=== PATIENT | female | born 1995 ===

== ENCOUNTER 2021-12-09 11:02 | Emergency (ER) | payer SELFPAY ==
[2021-12-09] MEDS ORDERED: SODIUM CHLORIDE 0.9% 1000 ML 1,000 ML IV ONE (13:06)
[2021-12-09] MEDS ORDERED: diphenhydrAMINE 50 MG/ML VIAL IV ONE (13:06)
[2021-12-09] MEDS ORDERED: METOCLOPRAMIDE 10 MG/2 ML INJ IV ONE (13:06)
[2021-12-09] MEDS ORDERED: dexAMETHasone 4 MG/ML VIAL IV ONE (13:06)
--- NOTE | 2021-12-09 14:23 | Cat Scan Report ---
NONENHANCED CT SCAN OF THE HEAD: INDICATION / CLINICAL INFORMATION: 26 years Female; seizure. TECHNIQUE: Routine CT head without contrast. All CT scans at this location are performed using CT dos e reduction for ALARA by means of automated exposure control. COMPARISON: None. FINDINGS: BRAIN / INTRACRANIAL CONTENTS: No acute hemorrhage, mass effect, midline shift, hydrocephalus, or acu te, large territorial infarct. No chronic infarct or focal atrophy. Normal brain volume and ventricul ar/sulcal size for age. No significant white matter abnormality. Given the history of seizures, no space taking lesion in the frontal or in the temporal lobes; normal temporal horn tips suggest normal medial temporal lobes CRANIOCERVICAL JUNCTION: No significant abnormality. ORBITS: No significant abnormality of visualized orbits. SINUSES / MASTOIDS: No significant abnormality of the visualized paranasal sinuses or mastoid air moe ls. ADDITIONAL FINDINGS: None. IMPRESSION: No focal parenchymal lesion Signer Name: Samia Grimes MD Signed: 12/09/2021 2:19 PM Workstation Name: [id number]
--- NOTE | 2021-12-09 14:23 | Emergency Department Report ---
ED Seizure HPI - General Chief Complaint: Seizure Stated Complaint: WEAK/SEIZURE LIKE ACTIVITY Time Seen by Provider: 12/09/21 12:57 Source: patient, EMS Mode of arrival: Stretcher Limitations: No Limitations - History of Present Illness Initial Comments: 26-year-old black female with a past medical history of a seizure in July 2021 presents to the emergency department for evaluation after seizure. Patient states that she was told by her boyfriend that while she was sleeping this morning, she had a seizure, so he called 911. Patient states that she awoke to EMS in her room. She states that she now has a headache and some bite yousif on her tongue. She states that she had a seizure for the first time on July 25, 2021 and then she was seen by a neurologist as an outpatient. She states that that neurologist evaluated her and told her that she should start on some medication that she did not start. She states that she did not start the medication because she did not start new medications as prescribed because she felt like did not be enough of any examination to start her on medication. She states that she has not had any problems with seizures since then. Complaint: seizure Description of Episode: tonic-clonic movement Witnessed:: Yes Trauma: No Seizure History: known seizure disorder, history of non-compliance Place: home Possible Precipitating Event: none Associated Symptoms: denies other symptoms Treatments Prior to Arrival: none - Related Data Previous Rx's Medication Instructions Recorded Last Taken Type levETIRAcetam [Keppra TAB] 500 mg PO BID #60 tablet 12/09/21 Unknown Rx Allergies Allergy/AdvReac Type Severity Reaction Status Date / Time No Known Allergies Allergy Verified 12/09/21 11:08 ED Review of Systems ROS: Stated complaint: WEAK/SEIZURE LIKE ACTIVITY Other details as noted in HPI Comment: All other systems reviewed and negative Constitutional: denies: chills, fever Eyes: denies: eye discharge ENT: denies: congestion Respiratory: denies: cough, shortness of breath, SOB with exertion, SOB at rest, stridor, wheezing Cardiovascular: denies: chest pain, palpitations, dyspnea on exertion, o rthopnea, edema, syncope, paroxysmal nocturnal dyspnea Gastrointestinal: denies: abdominal pain, nausea, vomiting, diarrhea, hematemesis, melena, hematochezia Genitourinary: denies: urgency, dysuria Musculoskeletal: denies: back pain Skin: denies: rash, lesions Neurological: headache. denies: weakness, numbness, paresthesias, confusion, abnormal gait, vertigo ED Past Medical Hx - Surgical History Past Surgical History?: No - Social History Smoking Status: Never Smoker - Medications Home Medications: Home Medications Medication Instructions Recorded Confirmed Last Taken Type levETIRAcetam [Keppra TAB] 500 mg PO BID #60 tablet 12/09/21 Unknown Rx ED Physical Exam - General Limitations: No Limitations General appearance: alert, in no apparent distress - Head Head exam: Present: atraumatic, normocephalic - Eye Eye exam: Present: normal appearance. Absent: scleral icterus, conjunctival injection, nystagmus, periorbital swelling, periorbital tenderness - ENT ENT exam: Present: normal exam, normal orophraynx - Neck Neck exam: Present: normal inspection, full ROM. Absent: tenderness, meningismus, lymphadenopathy - Respiratory Respiratory exam: Present: normal lung sounds bilaterally. Absent: respiratory distress, wheezes, rales, rhonchi, stridor, chest wall tenderness - Cardiovascular Cardiovascular Exam: Present: tachycardia, normal heart sounds - GI/Abdominal GI/Abdominal exam: Present: soft, normal bowel sounds. Absent: distended, tenderness, guarding, rebound, rigid - Extremities Exam Extremities exam: Present: normal inspection, normal capillary refill. Absent: pedal edema, joint swelling, calf tenderness - Back Exam Back exam: Present: normal inspection. Absent: CVA tenderness (R), CVA tenderness (L), vertebral tenderness - Neurological Exam Neurological exam: Present: alert, oriented X3, CN II-XII intact, normal gait, reflexes normal. Absent: motor sensory deficit - Expanded Neurological Exam Expanded Patient oriented to: Present: person, place, time Speech: Present: fluid speech Cranial nerves: EOM's Intact: Normal, Gag Reflex: Normal, Tongue Deviation: Normal, Nystagmus: Normal, Facial Sensation: Normal Ataxia: Absent: yes Cerebellar function: Finger to Nose: Normal, Heel to [place]: Normal, Romberg: Normal Sensory exam: Upper Extremity Light Touch: Normal, Upper Extremity Temperature: Normal, Lower Extremity Light Touch: Normal, Lower Extremity Temperature: Normal Motor strength exam: RUE: 5, LUE: 5, RLE: 5, LLE: 5 Best Eye Response ([place]): (4) open spontaneously Best Motor Response (Adrianne): (6) obeys commands Best Verbal Response ([place]): (5) oriented [place] Total: 15 - Psychiatric Psychiatric exam: Present: normal affect, normal mood - Skin Skin exam: Present: warm, dry, intact, normal color ED Course Vital Signs 12/09/21 12/09/21 12/09/21 11:06 12:15 15:30 Temperature 97.9 F Pulse Rate 105 H 67 Respiratory 16 14 14 Rate Blood Pressure 140/90 129/76 [Left] O2 Sat by Pulse 99 98 97 Oximetry 12/09/21 19:05 Temperature 98.9 F Pulse Rate 89 Respiratory 14 Rate Blood Pressure 116/67 [Left] O2 Sat by Pulse 98 Oximetry - Reevaluation(s) Reevaluation #1: 12/09/21 15:47 Patient awake alert and oriented and has not had any active seizure activity since she has been in this department for the last several hours. Reevaluation #2: 12/09/21 18:25 Just prior to discharge, patient was noted to have seizure activity. Per the patient's nurse, she had tonic-clonic seizure that lasted about 30 seconds and was mildly postictal after seizure. Patient was given Ativan 1 mg IV followed by loading dose of Keppra 1000 mg IV piggyback. Case was discussed with Dr. Orta, emergency department attending physician, who stated that if patient had no more seizures she was cleared to be discharged home to follow-up with ne urology and placed on Keppra. Patient received loading dose of Keppra and remained in the department for another 2-1/2 hours with no seizure activity noted. ED Medical Decision Making - Lab Data Result diagrams: 12/09/21 14:01 12/09/21 14:01 - Radiology Data Radiology results: report reviewed, image reviewed CT head and brain without contrast: FINDINGS: BRAIN / INTRACRANIAL CONTENTS: No acute hemorrhage, mass effect, midline shift, hydrocephalus, or acute, large territorial infarct. No chronic infarct or focal atrophy. Normal brain volume and ventricular/sulcal size for age. No significant white matter abnormality. Given the history of seizures, no space taking lesion in the frontal or in the temporal lobes; normal temporal horn tips suggest normal medial temporal lobes CRANIOCERVICAL JUNCTION: No significant abnormality. ORBITS: No significant abnormality of visualized orbits. SINUSES / MASTOIDS: No significant abnormality of the visualized paranasal sinuses or mastoid air cells. ADDITIONAL FINDINGS: None. IMPRESSION: No focal parenchymal lesion - Medical Decision Making 26-year-old black female with a past medical history of a seizure in July 2021 presents to the emergency department for evaluation after seizure. Patient states that she was told by her boyfriend that while she was sleeping this morning, she had a seizure, so he called 911. Patient states that she awoke to EMS in her room. She states that she now has a headache and some bite yousif on her tongue. She states that she had a seizure for the first time on July 25, 2021 and then she was seen by a neurologist as an outpatient. She states that that neurologist evaluated her and told her that she should start on some medication that she did not start. She states that she did not start the medication because she did not start new medications as prescribed because she felt like did not be enough of any examination to start her on medication. She states that she has not had any problems with seizures since then. Physical exam unremarkable. Labs and urine without any acute abnormalities. CT scan without any acute abnormalities noted. Patient was noted to have seizure x1 while in the emergency department, and was treated with 1 mg of Ativan followed by loading dose of Keppra 1000 mg IV. Patient was monitored for 2-1/2 to 3 hours after dose of Keppra. Case was discussed with Dr. Orta, emergency department attending physician, who stated that patient was okay to be dischar ged home with prescription for Keppra to follow-up with neurology if no more seizure activity noted. Patient did not have any more seizure activity noted. She is advised to take medications as prescribed and follow-up with neurology for further evaluation and management or return to the emergency department for any concerning symptoms. Plan of care was reviewed with patient and her significant other and both verbalized understanding of and agreement with plan of care. Critical care attestation.: If time is entered above; I have spent that time in minutes in the direct care of this critically ill patient, excluding procedure time. ED Disposition Clinical Impression: Seizure Disposition: 01 HOME / SELF CARE / HOMELESS Is pt being admited?: No Does the pt Need Aspirin: No Condition: Stable Instructions: Non-Epileptic Seizures, Adult, Seizure, Adult, [id number], Managing Non-Epileptic Seizures, Adult Additional Instructions: Take medications as prescribed. Follow-up with neurology for further evaluation and management. Return to the emergency department as needed. Prescriptions: levETIRAcetam [Keppra TAB] 500 mg PO BID #60 tablet Referrals: BERE MORROW MD [Primary Care Provider] - 3-5 Days PENELOPE MOYER MD [Staff Physician] - 3-5 Days ILEANA RAMOS DO [Staff Physician] - 3-5 Days VALENTINA ROBLES MD [Staff Physician] - 3-5 Days Forms: Work/School Release Form(ED) Time of Disposition: 15:48
[2021-12-09 14:38] LABS: Alanine Aminotransferase 11 units/L (7-56); Albumin 4.5 g/dL (3.9-5); Blood Urea Nitrogen 8 mg/dL (7-17); Calcium 9.5 mg/dL (8.4-10.2); Hemolysis Index 8
[2021-12-09 14:48] LABS: Hematocrit 43.6 % (30.3-42.9); Hemoglobin 14.2 gm/dl (10.1-14.3); Mean Corpuscular HGB Conc 33 % (30-34); Mean Corpuscular Volume 90 fl (79-97); Platelet Count 178 K/mm3 (140-440); Red Blood Count 4.83 M/mm3 (3.65-5.03); Red Cell Distribution Width 13.6 % (13.2-15.2)
[2021-12-09 14:56] LABS: BUN/Creatinine Ratio 11
[2021-12-09] MEDS ORDERED: LORazepam 2 MG/ML VIAL IV ONE (15:58)
[2021-12-09] MEDS ORDERED: levETIRAcetam 1000 MG/NS 0.75% 1,000 MG/100 ML BAG IV ONE (16:14)
[2021-12-09 19:06] VITALS: BP 116/67
== END 2021-12-09 19:05 | disposition home or self-care (01) ==
LOC: ED 11:02
DX: R56.9 Unspecified convulsions (principal)
CPT/HCPCS: 36415; 70450; 80053; 84703; 85027; 96361; 96374; 96375; 99284; J1100; J1200; J1953; J2060; J2765; J7030